=== PATIENT | male | born 1945 | race Caucasian/White ===

== ENCOUNTER → 2017-10-15 | Outpatient (CLI) | payer OTHER ==
[~2017-10-15] MED LIST: ACTOS 30 MG TAB30 M2 PO; ASPIR-LOW81 MG PO; ATORVASTATIN CA40 MG PO; CARVEDILOL6.25 MG; COZAAR 25 MG TA25 M1 PO; GLUCOPHAGE XR500 MG PO; VITAMIN B-12500 MC4 PO; VITAMIN D1000 UNI1 PO; VOLTAREN 50MG T50 MG PO
--- NOTE | ~2017-10-15 | 2DMMODE ---
[facility] [address] [place] [address] 2 D/M-MODE ECHOCARDIOGRAM Name: IVONNE GARCIA JR Room #: [facility]#: [id number] Admission: 10/15/17 Attend Phys: Ellie Fraser Discharge: Date of : 49 Date of Service: 10/15/17 1103 Report #: [id number] THIS REPORT FOR: //name// APPROVED REPORT Study performed: 10/15/2017 10:05:54 EXAM: Comprehensive 2D, Doppler, and color-flow Echocardiogram Patient Location: Out-Patient Room #: Echo lab Status: routine BSA: 1.98 HR: 57 bpm BP: 138/88 mmHg Other Information Study Quality: Adequate Indications Diabetes CAD Hypertension/HDD 2D Dimensions RVDd: 37.06 mm LVEF(%): 55.08 (>50%) IVSd: 11.45 (7-11mm) LVOT Diam: 19.74 (18-24mm) LVDd: 45.83 mm PWd: 10.79 (7-11mm) Ascending Ao: 28.73 (22-36mm) LVDs: 32.76 (25-40mm) Aortic Root: 30.71 mm IVC: 17.00 mm Sapp's LVEF: 55.08 % Volumes Left Atrial Volume (Systole) Single Plane 4CH: 48.37 mL Single Plane 2CH: 43.13 mL LA ESV Index: 28.00 mL/m2 Aortic Valve AoV Peak Chau.: 1.07 m/s AO Peak Gr.: 4.58 mmHg LVOT Max P.21 mmHg LVOT Max V: 0.90 m/s TORI Vmax: 2.56 cm2 Mitral Valve [facility] [address] [place] [address] 2 D/M-MODE ECHOCARDIOGRAM Name: IVONNE GARCIA [id number] Admission: 10/15/17 Attend Phys: Ellie Fraser Discharge: Date of : 49 Date of Service: 10/15/17 1103 Report #: [id number] E/A Ratio: 1.4 MV Decel. Time: 145.72 ms MV E Max Chau.: 0.84 m/s MV A Chau.: 0.58 m/s MV PHT: 42.26 ms IVRT: 92.27 ms Pulmonary Valve PV Peak Chau.: 0.80 m/s PV Peak Gr.: 2.56 mmHg Pulmonary Vein P Vein S: 0.73 m/s P Vein A: 0.25 m/s P Vein D: 0.50 m/s P Vein A Dur.: 115.3 msec P Vein S/D Ratio: 1.46 Left Ventricle The left ventricle is normal size. There is normal left ventricular wall thickness. The left ventricular systolic function is normal. The left ventricular ejection fraction is within the normal range. LVEF is 55-60%. The left ventricular diastolic function is normal. Right Ventricle The right ventricle is normal size. The right ventricular systolic function is normal. Atria The left atrium size is normal. The right atrium size is normal. Aortic Valve The aortic valve is normal in structure. No aortic regurgitation is present. There is no aortic valvular stenosis. Mitral Valve The mitral valve is normal in structure. There is no mitral valve regurgitation noted. No evidence of mitral valve stenosis. Tricuspid Valve The tricuspid valve is normal in structure. There is no tricuspid valve regurgitation noted. Pulmonic Valve The pulmonary valve is normal in structure. There is no pulmonic valvular regurgitation. [employer] [facility] [address] [place] [address] 2 D/M-MODE ECHOCARDIOGRAM Name: IVONNE GARCIA JR Room #: [facility]#: [id number] Admission: 10/15/17 Attend Phys: Ellie Fraser Discharge: Date of : 49 Date of Service: 10/15/17 1103 Report #: [id number] The aortic root is normal in size. IVC is normal in size and collapses >50% with inspiration. Pericardium There is no pericardial effusion. <Conclusion> The left ventricle is normal size. There is normal left ventricular wall thickness. LVEF is 55-60%. The left ventricular diastolic function is normal. The right ventricle is normal size. The left atrium size is normal. The aortic valve is normal in structure. There is no mitral valve regurgitation noted. There is no tricuspid valve regurgitation noted. There is no pericardial effusion. <ELECTRONICALLY SIGNED> By: Dhaval Albert MD, FACC 10/15/17 1103 1103 110 Dhaval Albert MD, FACC /INF
== END ==
LOC: CV 09:49
DX: Z01.818 Encounter for other preprocedural examination (principal); I25.10 Atherosclerotic heart disease of native coronary artery without angina pectoris; I10 Essential (primary) hypertension; E11.9 Type 2 diabetes mellitus without complications

== ENCOUNTER → 2017-10-20 | Outpatient (CLI) | payer OTHER | LOC: ULTRA 12:44 | DX: Z01.818 Encounter for other preprocedural examination (principal); I25.10 Atherosclerotic heart disease of native coronary artery without angina pectoris ==

== ENCOUNTER → 2017-11-19 | Outpatient (CLI) | payer OTHER ==
[~2017-11-19] MED LIST changes: +ASPIRIN EC325 M1 PO; +PACERONE 200 M200 M1 PO
== END ==
LOC: RAD 07:27
DX: Z09 Encounter for follow-up examination after completed treatment for conditions other than malignant neoplasm (principal); J93.9 Pneumothorax, unspecified; Z95.1 Presence of aortocoronary bypass graft

== ENCOUNTER → 2018-06-18 | Outpatient (CLI) | payer OTHER | LOC: RAD 15:00 | DX: Z09 Encounter for follow-up examination after completed treatment for conditions other than malignant neoplasm (principal); J98.4 Other disorders of lung; M47.814 Spondylosis without myelopathy or radiculopathy, thoracic region; E11.9 Type 2 diabetes mellitus without complications; I25.10 Atherosclerotic heart disease of native coronary artery without angina pectoris ==

== ENCOUNTER → 2019-03-12 | Outpatient (CLI) | payer OTHER ==
[~2019-03-12] VITALS: Ht 167.6 cm; Wt 83.9 kg
[~2019-03-12] MED LIST changes: +ASPIR 8181 M1 PO; +LIPITOR80 MG PO; +METFORMIN HCL500 MG PO; +NITROGLYCERIN0.4 MG PO; +VITAMIN B-12500 MCG PO; +VITAMIN D5000 UNI1 PO
[2019-03-12 13:35] VITALS: BP 153/68
--- NOTE | 2019-03-13 11:58 | HC ---
[facility] [place] [address] CONSULTATION Name: IVONNE GARCIA JR Room #: [facility]#: [id number] Admission: 03/12/19 ������������������ Attend Phys: Pierce Virk MD Discharge: ������������������ Date of : 49 Report #: [id number] THIS REPORT FOR: //name// CC: Pierce Puentes Bety Menezes Esther DATE OF SERVICE: 03/12/2019 We were asked to see the patient by Dr. Virk. HISTORY OF PRESENT ILLNESS: The patient is a 74-year-old with coronary artery disease. The patient has asymptomatic carotid bruit. Right carotid has high velocities consistent with a 90% stenosis on noninvasive study. The patient has been asymptomatic without evidence of stroke or transient ischemic attack. We note the patient has a history of coronary artery disease and had coronary artery bypass in 10/2017. OTHER PAST MEDICAL HISTORY: Significant for diabetes mellitus, hyperlipidemia, hypertension and chronic kidney disease stage 3. PREVIOUS SURGERY: Includes coronary artery bypass surgery and coronary artery stent placement. SOCIAL HISTORY: The patient is . He is a never smoker. FAMILY HISTORY: Positive for heart disease and diabetes in father. REVIEW OF SYSTEMS: GENERAL: No fever or chills. HEENT: No headache, no vision problem, no hearing problems. CARDIOVASCULAR: No chest pain, no palpitations. RESPIRATORY: No shortness of breath or cough. GASTROINTESTINAL: No nausea, vomiting or blood. GENITOURINARY: No urgency, frequency, or blood. MUSCULOSKELETAL: No bone or joint problems. SKIN: No rash or infection. NEUROLOGIC: No syncope, no dizziness. No motor or sensory dysfunction. VASCULAR: No claudication, no rest pain. ENDOCRINE: No hot or cold intolerance. No tremor, no goiter. PSYCHIATRIC: No depression, no anxiety. IMMUNOLOGIC: No rheumatoid arthritides or lupoid rash. HEMATOLOGIC: No anemia. No bruisability. PHYSICAL EXAMINATION: [facility] [address] [place] [address] CONSULTATION Name: IVONNE GARCIA Room #: [facility]#: [id number] Admission: 03/12/19 ������������������ Attend Phys: Pierce Virk MD Discharge: ������������������ Date of : 49 Report #: [id number] GENERAL: The patient is a pleasant fellow who looks younger than his stated age. He has a mesomorphic habitus. VITAL SIGNS: Blood pressure 136/70, heart rate 60. HEENT: No scleral icterus, no arcus. NECK: No mass. Loud right carotid bruit is audible. CHEST: Clear to auscultation. HEART: Rhythm regular, no murmur. ABDOMEN: Soft, no mass, no tenderness. EXTREMITIES: No clubbing, cyanosis or edema, 2+ dorsalis pedis pulses. MUSCULOSKELETAL: No bone or joint asymmetry or deformity. SKIN: Warm and dry. No rash or infection. NEUROLOGIC: No obvious motor or sensory dysfunction post-catheterization. PSYCHIATRIC: Shows insight into problem. Oriented and appropriate. Mood is neither artificially elevated nor depressed. IMPRESSION: Carotid arteriography done today shows 90% stenosis at the carotid bulb, there was a long common carotid that does not appear to have disease. Risks and details of trans-carotid arterial revascularization were discussed with the patient. Options and alternatives were reviewed. The patient understands all of this and wishes to proceed. In particular, I stressed the importance of at least a week's worth of Plavix, statin and aspirin. The patient is chronically on statin and aspirin and will begin the Plavix and we will organize surgery. Thank you for the consult. ��������������������������������������������� <ELECTRONICALLY SIGNED> ���������������������������������������� By: Ivonne Iyer MD ��������������������������������������������� 03/13/19 1158 [id number] Ivonne Iyer MD /nt
== END | disposition home or self-care (01) ==
LOC: SPEC 07:22
DX: I65.23 Occlusion and stenosis of bilateral carotid arteries (principal); I70.1 Atherosclerosis of renal artery; I73.89 Other specified peripheral vascular diseases; I12.9 Hypertensive chronic kidney disease with stage 1 through stage 4 chronic kidney disease, or unspecified chronic kidney disease; N18.9 Chronic kidney disease, unspecified; E11.22 Type 2 diabetes mellitus with diabetic chronic kidney disease; I25.10 Atherosclerotic heart disease of native coronary artery without angina pectoris; I25.2 Old myocardial infarction; J45.909 Unspecified asthma, uncomplicated; M10.9 Gout, unspecified; E78.5 Hyperlipidemia, unspecified; Z98.890 Other specified postprocedural states; Z95.1 Presence of aortocoronary bypass graft; Z79.899 Other long term (current) drug therapy; Z79.82 Long term (current) use of aspirin

== ENCOUNTER 2019-03-26 05:12 | Inpatient (IN) | payer OTHER ==
[2019-03-23 13:43] LABS: APTT 26.7 Seconds (24.5-32.8); PROTIME 10.7 Seconds (9.3-11.4)
[2019-03-23 13:48] LABS: URINE BILIRUBIN NEGATIVE (Negative); URINE BLOOD 3+ (Negative); URINE CLARITY CLEAR; URINE COLOR YELLOW; URINE GLUCOSE-RANDOM* NEGATIVE (Negative); URINE KETONES NEGATIVE (Negative); URINE LEUKOCYTES-REFLEX TRACE (Negative); URINE NITRITE-REFLEX NEGATIVE (Negative); URINE PROTEIN (DIPSTICK) NEGATIVE (Negative); URINE SPECIFIC GRAVITY 1.025 (1.005-1.035); URINE UROBILINOGEN 0.2 E.U./dl (0.2-1.0)
[2019-03-23 14:05] LABS: SQUAMOUS None Seen /LPF (0-3); URINE RBC >20 Many /HPF (0-2)
[2019-03-23 14:06] LABS: BACTERIA-REFLEX 1-9 Few /HPF (None Seen); CRYSTALS None Seen /LPF (None Seen); HYALINE CASTS 0-3 Few /LPF (None Seen); URINE WBC-REFLEX 0-5 Rare /HPF (0-5)
[~2019-03-26] VITALS: Ht 167.6 cm; Wt 94.6 kg
[~2019-03-26 05:12] MED LIST changes: +ASPIRIN325 PO; +COREG6.25 MG PO; +PLAVIX 75 MG TA75 M1 PO
[2019-03-26 07:30] VITALS: BP 146/74
[2019-03-26 11:14] LABS: POC BE 0 mmol/L (-2.0 to +3.0); POC CA IONIZED 4.2 mg/dL (4.5-5.3); POC GLUCOSE 127 mg/dL (70-99); POC HCO3 23.7 mmol/L (22.0-26.0); POC HEMOGLOBIN 10.2 g/dL (14.0-18.0); POC POTASSIUM 4.4 mmol/L (3.5-5.1); POC SODIUM 139 mmol/L (136-145); POC pCO2 33.2 mmHg (35.0-45.0)
--- NOTE | 2019-03-26 13:00 | NUR ---
PT ADMITTED FROM PACU PER BED ACC BY RN AND JOSE L. PT IS AAOX3 PLACED ON THE MONITOR AND ORIENTED TO ICU SURROUNDING. PT'S ASSESSMENT COMPLETED. MONITOR SHOWS NSR. RT NECK DRESSING WITOUT ANY DRAINAGE. LEFT GROIN SITE WITHOUT HEMTAMO. GOOD PULSES, SKIN WARM AND DRY. DENIES ANY PAIN AT THIS TIME. 1400 AT THE BEDSIDE UPDATE GIVEN, VSS. WILL CONT TO MONITOR.
[2019-03-26 13:01] VITALS: BP 87/43
[2019-03-26 14:00] VITALS: BP 98/49
[2019-03-26 15:00] VITALS: BP 94/41
[2019-03-26 16:00] VITALS: BP 82/34
[2019-03-26 17:00] VITALS: BP 86/39
--- NOTE | 2019-03-26 17:00 | NUR ---
UP TO CHAIR WITHOUT PROBLEMS NO DIZZINESS, VSS. PT EATING HIS DINNER UP IN THE CHAIR, MIAH WELL. VSS. WILL CONT TO MONITOR.
[2019-03-27] VITALS (8 sets, daily range): BP systolic 91–111; BP diastolic 28–47
[2019-03-27 04:49] LABS: CALCIUM 6.6 mg/dL (8.5-10.1); CREATININE 1.4 mg/dL (0.7-1.3); POTASSIUM 3.9 mmol/L (3.5-5.1)
[2019-03-27 04:50] LABS: HEMATOCRIT 29.9 % (42.0-52.0); MCH 31.3 pg (26.0-34.0); MCHC 33.5 g/dL (28.0-37.0); MCV 93.3 fL (80.0-100.0); RBC 3.21 mil/uL (4.50-6.00); RDW 13.5 % (10.5-14.5); WBC 8.1 thou/uL (4.0-11.0)
--- NOTE | 2019-03-27 06:01 | NUR ---
PT IS AWAKE AND ALERT. STARKEY NEURO INTACT. RIGHT CAROTID AND LEFT FEMEROL DRESSINGS DRY AND INTACT. PT HAS SLEPT AT INTERVALS TONIGHT 500 CC UO THIS SHIFT. DENIES PAIN. EREMAINS IN SINUS RHYTHM. WILL CONT TO MONITOR.
--- NOTE | 2019-03-27 10:40 | NUR ---
ORDER REC'D FOR OT EVAL AND TREAT. PATIENT HAS BEEN DISCHARGED AND CLEARED FOR RETURN TO HOME FROM PHYSICAL THERAPY STANDPOINT. NSG STATES THAT PATIENT DOES NOT REQUIRE OCCUPATIONAL THERAPY. PATIENT HAS BEEN SCREENED FOR SKILLED OT AND WILL BE DISCHARGED FROM SERVICE W/O EVALUATION CHARGE.
--- NOTE | 2019-03-27 11:02 | O ---
[facility] [place] [address] OPERATIVE REPORT Name: RADHAIVONNE Raúl CISNEROS Room #: 242-P ADM IN M.R.#: [id number] Admission: 03/26/19 ������������������ Attend Phys: Ivonne Iyer MD Discharge: ������������������ Date of : 49 Report #: [id number] THIS REPORT FOR: //name// CC: Ivonne Santana DATE OF SERVICE: 03/26/2019 PREOPERATIVE DIAGNOSIS: Right carotid artery stenosis. POSTOPERATIVE DIAGNOSIS: Right carotid artery stenosis. OPERATION: Transcarotid artery revascularization procedure, right carotid artery. SURGEONS: Ivonne Iyer MD and Pierce Virk MD ANESTHESIA: General. INDICATIONS: The patient is a 74-year-old with a 90% right carotid artery stenosis. The patient was evaluated and found to be a satisfactory candidate for transcarotid artery revascularization. Exposure was obtained through a transverse incision in the low neck. The sternal and clavicular heads of the sternocleidomastoid muscle were and the carotid sheath was entered and the common carotid artery was exposed and controlled. A pursestring suture was made in the common carotid and 10,000 units of heparin were given. An introducer needle was placed in the middle of the pursestring and fine wire was passed under fluoroscopic guidance. The wire was used to place a small short sheath and then through the sheath, a longer stiffer wire was placed once again under fluoroscopic guidance. Prior to the carotid incision, Dr. Virk had placed a sheath in the left common femoral vein using fluoroscopic guidance for localization, an Amplatz needle for entry in a wire with sheath as a follower. Returning to the carotid artery, once the stiff wire was in place, the TCAR sheath was placed under fluoroscopic guidance. When the shoe of the sheath was flushed with the artery, the device was secured in place at the skin. The device was flushed through the filter and connected to the femoral vein exit site, creating our arteriovenous fistula for cerebral protection. [facility] [address] [place] [address] OPERATIVE REPORT Name: IVONNE GARCIA JR Room #: 242-P [facility] ..#: [id number] Admission: 03/26/19 ������������������ Attend Phys: Ivonne Iyer MD Discharge: ������������������ Date of : 49 Report #: [id number] The lesion was crossed with the 0.014 guidewire and with the embolic protection in place and carotid artery occlusion proximally and pressure being maintained by our anesthesiologists, a predilatation angioplasty was done using a 4.5 x 30 mm balloon. Limited arteriograms were done both before and after the balloon procedure and then a 9 x 40 mm stent was placed under direct fluoroscopic vision. With the stent in place, a post-dilatation angioplasty was done using a 5.5 x 30 mm balloon. In total, 28 mL of contrast were used and fluoroscopy time was 5.5 minutes. Embolic protection with the carotid artery to femoral shunt was 13 minutes. After waiting two minutes after our post-dilatation angioplasty, the common carotid occlusion was released and antegrade flow was reestablished. The sheath was removed from the common carotid artery and the pursestring was pulled taut. Additional sutures were placed as necessary for hemostasis. When hemostasis was achieved with the suture, then protamine was given to reverse the heparin and the femoral vein sheath was removed. When hemostasis in the wound site was satisfactory, the wound was closed in layers with interrupted Vicryl for the platysma and Monocryl for the skin. The patient tolerated all this in satisfactory condition and was taken to the recovery area in good condition. All counts reported as correct. ��������������������������������������������� <ELECTRONICALLY SIGNED> ���������������������������������������� By: Ivonne Iyer MD ��������������������������������������������� 03/27/19 1102 1440 [id number] Ivonne Iyer MD /nt
--- NOTE | 2019-03-27 12:18 | NUR ---
PT DISCHARGE WITH INSTRUCTIONS GIVEN VERBALIZES UNDERSTANDING. WITH PT ACCOMPANYING PER DISCHARGE. VOIDED PRIOR TO DISCHARGE. DC PER WHEEL CHAIR TO CAR. NO NAUSEA OR PAIN ISSUES TOLERATING HEART HEALTHY DIET. NO CONCERNS OR ISSUES AT THIS TIME
== END 2019-03-27 12:00 | disposition home or self-care (01) | DRG 36 ==
LOC: TBA 05:12 → PRE 06:19 → ICU 13:15 → PRE 13:27 → ICU 03-27 12:00
PROVIDERS: Physician Assistant; ADMIT Surgery Vascular Surgery
PROC: 037K3DZ Dilation of Right Internal Carotid Artery with Intraluminal Device, Percutaneous Approach (ICD-10-PCS; principal; 2019-03-26)
DX: I65.21 Occlusion and stenosis of right carotid artery (principal); I25.10 Atherosclerotic heart disease of native coronary artery without angina pectoris; I12.9 Hypertensive chronic kidney disease with stage 1 through stage 4 chronic kidney disease, or unspecified chronic kidney disease; N18.9 Chronic kidney disease, unspecified; E78.00 Pure hypercholesterolemia, unspecified; E11.22 Type 2 diabetes mellitus with diabetic chronic kidney disease; Z79.02 Long term (current) use of antithrombotics/antiplatelets; Z79.84 Long term (current) use of oral hypoglycemic drugs; Z79.899 Other long term (current) drug therapy
CPT/HCPCS: 10078; 47375; 50010; 50101; 50386; 50417; 50445; 50455; 51751; 54118; 56524; 56526; 56528; 56529; 56531; 62110; 62900; 65040; 65090; 70005

== ENCOUNTER → 2021-10-24 | Outpatient (CLI) | payer OTHER | LOC: SJCVC 10:25 | PROVIDERS: ATTEND Internal Medicine Cardiovascular Disease | DX: R94.31 Abnormal electrocardiogram [ECG] [EKG] (principal); I45.2 Bifascicular block; I25.10 Atherosclerotic heart disease of native coronary artery without angina pectoris; I65.23 Occlusion and stenosis of bilateral carotid arteries; E78.00 Pure hypercholesterolemia, unspecified; E11.00 Type 2 diabetes mellitus with hyperosmolarity without nonketotic hyperglycemic-hyperosmolar coma (NKHHC); E11.22 Type 2 diabetes mellitus with diabetic chronic kidney disease; I12.9 Hypertensive chronic kidney disease with stage 1 through stage 4 chronic kidney disease, or unspecified chronic kidney disease; N18.30 Chronic kidney disease, stage 3 unspecified; M10.9 Gout, unspecified; F17.290 Nicotine dependence, other tobacco product, uncomplicated; Z95.1 Presence of aortocoronary bypass graft; Z79.82 Long term (current) use of aspirin; Z79.84 Long term (current) use of oral hypoglycemic drugs; Z79.899 Other long term (current) drug therapy; Z72.89 Other problems related to lifestyle; Z82.49 Family history of ischemic heart disease and other diseases of the circulatory system ==